=== PATIENT | male | born 1975 ===

== ENCOUNTER 2018-01-30 20:18 | Emergency (ER) | payer OTHER ==
[~2018-01-30] VITALS: Ht 180.3 cm; Wt 129.3 kg
[2018-01-30 20:57] VITALS: Ht 180.3 cm; Wt 129.3 kg
[2018-01-31 01:40] VITALS: BP 128/70
== END 2018-01-31 01:40 | disposition home or self-care (01) ==
LOC: ED 20:18
DX: R60.0 Localized edema (principal); M25.562 Pain in left knee; I10 Essential (primary) hypertension; Z90.89 Acquired absence of other organs; Z90.49 Acquired absence of other specified parts of digestive tract; Z98.890 Other specified postprocedural states
CPT/HCPCS: J2270; Q0092